=== PATIENT | male | born 1995 | race Caucasian/White ===

== ENCOUNTER 2019-08-31 13:32 | Inpatient (IN) | payer MEDICAID ==
[~2019-08-31] VITALS: Ht 172.7 cm; Wt 44.5 kg
--- NOTE | ~2019-08-31 | CON ---
[address] [address] CONSULTATION Name: PRAMODMARCOS SUAREZ Room: [address] IN M.R.#: [id number] Admission: 08/31/19 Attend Phys: Jordan Woods Discharge: Date of : 89 Report #: [id number] THIS REPORT FOR: //name// cc: Paco Escobar MD, Charles F. MD ~ THIS REPORT FOR: //name// CC: Paco Stovall DICTATED BY: Heather Sagastume [facility] DATE OF SERVICE: 09/01/2019 PRIMARY CARE PHYSICIAN: Paco Escobar MD Please note at the time of this dictation, the patient was seen and physically examined by myself. HISTORY OF PRESENT ILLNESS: This 23-year-old male who is nonverbal and noncommunicative. During the interview, he mainly just looks at you. He has a longstanding history of autism and that is normal for him. Apparently, the family has witnessed over the last couple of days that when he goes to swallow, he is grimacing and having difficulty with any eating or drinking. She also notices that he does not say that he is in pain, but just more by his facial movement. She also notices that he goes to the bathroom several times in an hour, at least once or twice an hour and is in there for extended periods of time. Due to he does not let anyone in there and they are unable to tell us to whether or not he is having diarrhea or if he is just urinating that frequently when he is in there, so they are unsure of what his bowel habits are at this time. Apparently back in 2014 because of this similar episodes that were going on as currently going on. He was sent to for EGD and colonoscopy. EGD showed that he had some esophagitis apparently, he was placed on Zantac, which he has been taking up until the recent recall. He was not placed on anything else after he quit taking that, so it has been sometime in regards to that. He was unable to do the colonoscopy because he was unable to drink the prep. Otherwise, he is able to get up and around without assistance. He just does not communicate with anyone. ALLERGIES: No known drug allergies. MEDICATIONS FROM HOME: None. PAST MEDICAL HISTORY: [place] [address] CONSULTATION Name: MARCOS BENAVIDEZ Room: [address] IN [facility]#: [id number] Admission: 08/31/19 Attend Phys: Jordan Woods Discharge: Date of : 89 Report #: [id number] PAST SURGICAL HISTORY: Negative. FAMILY HISTORY: Crohn's on paternal side of the family. SOCIAL HISTORY: Lives with his mother and stepfather. No alcohol, tobacco or illegal drug use, just very nonverbal. REVIEW OF SYSTEMS: Twelve-point review of systems is essentially negative except what is mentioned in the HPI. PHYSICAL EXAMINATION: VITAL SIGNS: Temperature 36.7, pulse 84, respirations 16, blood pressure 115/61. HEART: Regular rate and rhythm. LUNGS: Diminished, but clear. ABDOMEN: Soft, positive bowel sounds in all 4 quadrants with questionable epigastric discomfort, in which he closed his eyes and had a slight grimace on his face. LABORATORY DATA: Hemoglobin 11.3, white count 5.9, platelets 192. GFR is 139. Total bilirubin is elevated at 1.7, alkaline phosphatase 60, ALT 16, AST is 16 as well. CRP is less than 2. He did have a CT scan of the abdomen and pelvis, which was essentially negative. No small or large bowel thickening noted and gallbladder appeared to be normal as well. IMPRESSION: 1. Dysphagia. 2. Odynophagia. 3. History of esophagitis. 4. Family history of Crohn's disease. PLAN: 1. EGD today with Dr. Schneider. 2. Further recommendations to be made once the procedure has been performed. Thank you for allowing us to participate in this patient's care. Please do not hesitate to call with any questions in regard to this consult. By: [id number] Schneider MD /arpan
--- NOTE | ~2019-08-31 | PROC ---
[address] [address] PROCEDURE REPORT Name: MARCOS BENAVIDEZ Room: [address] ADM IN M.R.#: [id number] Admission: 08/31/19 Attend Phys: Jordan Woods Discharge: Date of : 89 Report #: [id number] THIS REPORT FOR: //name// cc: Paco Escobar MD, Charles F. MD ~ THIS REPORT FOR: //name// For GI report, please see the Provation report in Perceptive 7 content. By: [facility]6Medical Records Staff JOHNATHON /DAYNA
[~2019-08-31 13:32] MED LIST: KEFLEX500 MG PO; NOHOMEMEDICATIONS
[2019-08-31 13:41] VITALS: BP 128/85
[2019-08-31 14:10] LABS: URINE BILIRUBIN NEGATIVE (Negative); URINE BLOOD NEGATIVE (Negative); URINE CLARITY CLEAR; URINE COLOR YELLOW; URINE GLUCOSE-RANDOM NEGATIVE (Negative); URINE KETONES 3+ (Negative); URINE LEUKOCYTES-REFLEX NEGATIVE (Negative); URINE NITRITE-REFLEX NEGATIVE (Negative); URINE PROTEIN NEGATIVE (Negative); URINE SPECIFIC GRAVITY 1.025 (1.005-1.030)
[2019-08-31 14:16] LABS: ABSOLUTE EOSINOPHILS 0.1 thou/uL (0.0-0.7); ABSOLUTE LYMPHOCYTES 1.4 thou/uL (0.8-5.3); ABSOLUTE MONOCYTES 0.7 thou/uL (0.0-1.2); BASOPHILS 0.5 %; HEMATOCRIT 40.7 % (42.0-52.0); HEMOGLOBIN 13.9 gm/dL (14.0-18.0); LYMPHOCYTES 19.1 %; MCH 32.5 pg (26.0-34.0); MCHC 34.3 g/dL (28.0-37.0); MCV 94.7 fL (80.0-100.0); MONOCYTES 9.6 %; MPV 7.8 fl. (7.2-11.1); NUCLEATED RBCS 0 /100WBC; PLATELET COUNT* 266 thou/uL (150-400); POLYS 69.8 %; RBC 4.29 mil/uL (4.50-6.00); RDW-CV 14.5 % (10.5-14.5); WBC 7.2 thou/uL (4.0-11.0)
[2019-08-31 14:27] LABS: CREATININE 0.9 mg/dL (0.6-1.3); POTASSIUM 3.9 mmol/L (3.5-5.1)
[2019-08-31 14:32] LABS: ALBUMIN 5.1 g/dL (3.4-5.0); TOTAL BILIRUBIN 1.3 mg/dL (<0.1-1.0); TOTAL PROTEIN 8.9 g/dL (6.4-8.2)
[2019-08-31 14:54] LABS: ANISOCYTOSIS Occasional; PLATELET ESTIMATE ADEQUATE
[2019-08-31 18:32] VITALS: BP 118/72
[2019-08-31 20:00] VITALS: BP 118/61
[2019-09-01 05:06] LABS: ABSOLUTE LYMPHOCYTES 1.3 thou/uL (0.8-5.3); ABSOLUTE MONOCYTES 0.7 thou/uL (0.0-1.2); ABSOLUTE NEUTROPHILS 3.9 thou/uL (1.6-8.1); BASOPHILS 0.4 %; EOSINOPHILS 0.7 %; HEMATOCRIT 32.4 % (42.0-52.0); LYMPHOCYTES 22.3 %; MCH 32.9 pg (26.0-34.0); MCHC 34.8 g/dL (28.0-37.0); MCV 94.5 fL (80.0-100.0); MONOCYTES 11.2 %; MPV 7.8 fl. (7.2-11.1); NUCLEATED RBCS 0 /100WBC; PLATELET COUNT* 192 thou/uL (150-400); POLYS 65.4 %; RBC 3.42 mil/uL (4.50-6.00); RDW-CV 14.4 % (10.5-14.5); WBC 5.9 thou/uL (4.0-11.0)
[2019-09-01 05:19] LABS: HEMOGLOBIN 11.3 gm/dL (14.0-18.0)
[2019-09-01 05:31] LABS: ALBUMIN 3.9 g/dL (3.4-5.0); CALCIUM 8.3 mg/dL (8.5-10.1); CREATININE 0.7 mg/dL (0.6-1.3); POTASSIUM 4.1 mmol/L (3.5-5.1); TOTAL BILIRUBIN 1.7 mg/dL (<0.1-1.0); TOTAL PROTEIN 6.9 g/dL (6.4-8.2)
[2019-09-01 08:10] VITALS: BP 114/60
[2019-09-01 12:00] VITALS: BP 106/54
[2019-09-01] MEDS ORDERED: PRILOSEC OTC20 MG PO (13:57)
[2019-09-01 14:35] VITALS: BP 106/54
[2019-09-01 23:37] VITALS: BP 134/70
[2019-09-02 05:00] VITALS: BP 155/71
[2019-09-02 05:48] LABS: ABSOLUTE EOSINOPHILS 0.1 thou/uL (0.0-0.7); ABSOLUTE LYMPHOCYTES 2.5 thou/uL (0.8-5.3); ABSOLUTE MONOCYTES 1.1 thou/uL (0.0-1.2); ABSOLUTE NEUTROPHILS 5.7 thou/uL (1.6-8.1); BASOPHILS 0.5 %; EOSINOPHILS 1.1 %; HEMATOCRIT 37.6 % (42.0-52.0); HEMOGLOBIN 12.7 gm/dL (14.0-18.0); MCH 31.9 pg (26.0-34.0); MCHC 33.7 g/dL (28.0-37.0); MCV 94.8 fL (80.0-100.0); NUCLEATED RBCS 0 /100WBC; PLATELET COUNT* 255 thou/uL (150-400); POLYS 60.4 %; RBC 3.96 mil/uL (4.50-6.00); RDW-CV 14.1 % (10.5-14.5); WBC 9.4 thou/uL (4.0-11.0)
[2019-09-02 08:20] VITALS: BP 116/70
[2019-09-02] MEDS ORDERED: ONDANSETRON HCL4 M2 PO (08:48)
[2019-09-02] MEDS ORDERED: PRILOSEC OTC20 MG PO (08:48)
[2019-09-02 11:11] VITALS: BP 106/54
--- NOTE | 2019-09-03 15:48 | PATH ---
[facility] [address] [place] [address] PATHOLOGY RPT PROCEDURE Name: MARCOS BENAVIDEZ Room: [address] IN M.R.#: [id number] Admission: 08/31/19 Date of : 89 Discharge: 09/02/19 Report #: [id number] Path Case #: [id number] [facility] Accession Number: [id number] . 01 Material submitted: . stomach - GASTRIC BIOPSY FOR H. PYLORI AND DUODENAL ULCER . 01 Clinical history: . For H. pylori and duodenal ulcer . 02 Diagnosis: Gastric biopsy: - Mild nonspecific chronic gastritis, negative for Helicobacter pylori organisms and dysplasia. (MAMTA:pit 09/03/2019) . Special stain: H. pylori immuno QTP 09/03/2019 1036 Local . 02 Electronically signed: . Fuad Martinez MD, Pathologist NPI- [id number] . 01 Gross description: . The specimen is received in formalin, labeled "Robby, Marcos, gastric biopsy" and consists of 4 fragments of hernandez tissue measuring 1.0 x 0.3 x 0.2 cm in aggregate which are entirely submitted in A1. (SDY; 09/02/2019) SYU/SYU 09/02/2019 1115 Local . 02 Pathologist provided ICD-10: K29.50 . 02 CPT . 982807, [id number] Specimen Comment: A courtesy copy of this report has been sent to [phone] Specimen Comment: [phone], Specimen Comment: Report sent to ,DR GALINDO / DR GARZA Performed at: [address], [place], [place] [id number] MD Jaswant Urias MD Phone: [phone] Performed at: 02 [facility] [address], [place], [place] [id number] MD Fuad Martinez MD Phone: [phone]
== END 2019-09-02 14:50 | disposition home or self-care (01) | DRG 384 ==
LOC: M.ERS 13:32 → M.TBA-ER 16:34 → M.ORTHSURG 16:34
PROVIDERS: Nurse Practitioner Family; ADMIT Internal Medicine; ATTEND Internal Medicine
PROC: 0DB68ZX Excision of Stomach, Via Natural or Artificial Opening Endoscopic, Diagnostic (ICD-10-PCS; principal; 2019-09-01)
DX: K26.9 Duodenal ulcer, unspecified as acute or chronic, without hemorrhage or perforation (principal); F84.0 Autistic disorder; E86.0 Dehydration; Z20.828 Contact with and (suspected) exposure to other viral communicable diseases; R13.10 Dysphagia, unspecified; Z83.79 Family history of other diseases of the digestive system; Z79.899 Other long term (current) drug therapy

== ENCOUNTER 2019-12-09 15:22 | Emergency (ER) | payer MEDICAID ==
[~2019-12-09] VITALS: Ht 175.3 cm; Wt 47.6 kg
[~2019-12-09 15:22] MED LIST changes: +ONDANSETRON HCL4 M2 PO; +PRILOSEC OTC20 MG PO
[2019-12-09 15:36] VITALS: BP 103/56
== END 2019-12-09 18:22 | disposition left against medical advice (07) ==
LOC: M.ERS 15:22
DX: F69 Unspecified disorder of adult personality and behavior (principal); Z53.21 Procedure and treatment not carried out due to patient leaving prior to being seen by health care provider